=== PATIENT | male | born 1960 | race Hispanic/Latino ===

== ENCOUNTER 2019-01-11 07:20 | Day surgery (SDC) | payer OTHER ==
[2019-01-09 13:26] VITALS: BP 140/77
[2019-01-09 13:30] LABS: APPEARANCE,URINE Clear (CLEAR); BASOPHILS % (AUTO) 0.8 % (0.0-5.0); BILIRUBIN,URINE Negative (NEGATIVE); COLOR,URINE Yellow (YELLOW); EOSINOPHILS % (AUTO) 0.7 % (0.0-8.0); GLUCOSE, URINE (UA) Negative (NEGATIVE); KETONES,URINE Negative (NEGATIVE); LEUKOCYTE ESTERASE ,URINE Negative (NEGATIVE); LYMPHOCYTES % (AUTO) 33.4 % (21.0-51.0); MEAN CORPUSCULAR HEMOGLOBIN 29.5 pg (27.0-33.0); MEAN CORPUSCULAR HGB CONC 33.7 g/dL (32.0-36.0); MEAN CORPUSCULAR VOLUME 87.5 fL (79-99); MONOCYTES % (AUTO) 6.9 % (3.0-13.0); NEUTROPHILS % (AUTO) 58.2 % (40.0-77.0); NITRATE,URINE Negative (NEGATIVE); NUCLEATED RED BLOOD CELLS 0.1 % (0.0-0.19); OCCULT BLOOD,URINE Negative (NEGATIVE); PH,URINE 7.5 (5.0-8.0); PLATELET COUNT (AUTO) 254 K/uL (130-400); PROTEIN,URINE Negative (NEGATIVE); RED BLOOD CELL COUNT(AUTO) 4.46 MIL/uL (4.50-6.20); RED CELL DISTRIBUTION WIDTH 13.1 % (11.0-15.5); WHITE BLOOD COUNT (AUTO) 4.7 K/uL (4.8-10.8)
[2019-01-09 13:36] LABS: CREATININE 0.9 mg/dL (0.5-1.5); POTASSIUM 4.6 mmol/L (3.5-5.1)
[~2019-01-11] VITALS: Ht 182.9 cm; Wt 86.5 kg
[2019-01-11] VITALS (22 sets, daily range): BP systolic 97–148; BP diastolic 50–75
[~2019-01-11 07:20] MED LIST: ATOR20TA65 PO; LOSA25TA41 PO
[2019-01-11] MEDS ORDERED: LACTATED RINGERS 1000ML 1,000 ML IV ONE (08:32)
[2019-01-11] MEDS ORDERED: BUPIVACAINE/PF 0.25% 30ML VIAL IJ ONE (09:09)
[2019-01-11] MEDS ORDERED: PROPOFOL 10 MG/ML 20ML VIAL IV ONE (09:37)
[2019-01-11] MEDS ORDERED: DEXAMETHASONE SOD PHOSPHATE 10MG/ML 1ML VIAL ONE (09:37)
[2019-01-11] MEDS ORDERED: LIDOCAINE PF 2% 5ML ABBOJECT ONE (09:37)
[2019-01-11] MEDS ORDERED: FENTANYL CITRATE PF 50 MCG/1 ML 2ML VIAL ONE (09:37)
[2019-01-11] MEDS ORDERED: ONDANSETRON HCL 4 MG/2 ML VIAL ONE (09:37)
[2019-01-11] MEDS ORDERED: MIDAZOLAM HCL 1 MG/ML 2ML VIAL ONE (09:37)
[2019-01-11] MEDS ORDERED: GLYCOPYRROLATE 1 MG/5 ML SYRINGE ONE (09:54)
[2019-01-11] MEDS ORDERED: MEPERIDINE-PF 25 MG/ML SYG ONE (10:44)
--- NOTE | 2019-01-11 11:55 | NUR ---
ASSESSMENT RECEIVED PT FROM Loulou VEGA RN. PT [id number]. DRSG TO RIGHT INGUINAL AREA DRY AND INTACT. NO BLEEDING, OOZING NOTED TO SITE. AT BEDSIDE
--- NOTE | 2019-01-11 12:25 | NUR ---
DISCHARGE ORAL AND WRITTEN DISCHARGE INSTRUCTIONS GIVEN TO PT AND PTS ALONG WITH PRESCRIPTION. DRSG TO RIGHT GROIN DRY AND INTACT. SOFT TO TOUCH. INSTRUCTED ON IMPORTANCE OF VOIDING WITHIN 6 HOURS. IF NOT VOIDING REPORT TO ER OR CALL . BOTH VERBALIZED UNDERSTANDING.
== END 2019-01-11 12:30 | disposition home or self-care (01) ==
LOC: DAH 07:20
PROVIDERS: ATTEND Surgery
DX: K40.90 Unilateral inguinal hernia, without obstruction or gangrene, not specified as recurrent (principal)
CPT/HCPCS: 36415; 49505; 80048; 81003; 85025; A4450; A4452; A4606; A4930; C1729; C1781; J1100; J2001; J2175; J2250; J2405; J2704; J3010; J3490 ×2; J7120

== ENCOUNTER 2024-05-01 11:04 | Emergency (ER) | payer BC, OTHER ==
[~2024-05-01] VITALS: Ht 182.9 cm; Wt 88.5 kg
[2024-05-01 11:06] VITALS: PULSE 107; RESP 18; TEMP 98.3; O2SAT 98
[2024-05-01] MEDS ORDERED: IOHEXOL 350 MG/ML 100ML INFUS..BTL IV ONE (11:27)
[2024-05-01 11:42] LABS: BASOPHILS # (AUTO) 0.04 K/uL (0.00-0.20); BASOPHILS % (AUTO) 0.8 % (0.0-5.0); EOSINOPHILS # (AUTO) 0.03 K/uL (0.00-0.70); EOSINOPHILS % (AUTO) 0.6 % (0.0-8.0); HEMATOCRIT 41.7 % (42-54); IMMATURE GRANULOCYTE ABSOLUTE 0.01 K/uL (0-1); LYMPHOCYTES # (AUTO) 1.4 K/uL (1.0-4.8); LYMPHOCYTES % (AUTO) 27.1 % (21.0-51.0); MEAN CORPUSCULAR HEMOGLOBIN 29.6 pg (27.0-33.0); MEAN CORPUSCULAR HGB CONC 34.1 g/dL (32.0-36.0); MEAN CORPUSCULAR VOLUME 87.1 fL (79-99); MONOCYTES # (AUTO) 0.5 K/uL (0.1-1.0); NEUTROPHILS # (AUTO) 3.1 K/uL (1.8-7.7); NEUTROPHILS % (AUTO) 61.3 % (40.0-77.0); PLATELET COUNT (AUTO) 217 K/uL (130-400); RED BLOOD CELL COUNT(AUTO) 4.79 MIL/uL (4.50-6.20); RED CELL DISTRIBUTION WIDTH 12.2 % (11.0-15.5)
[2024-05-01 11:51] LABS: POTASSIUM 4.3 mmol/L (3.5-5.1)
[2024-05-01 12:00] LABS: INR 1.05 (0.85-1.15); PROTHROMBIN TIME 11.3 SEC (9.6-11.6)
[2024-05-01 12:01] LABS: PARTIAL THROMBOPLASTIN TIME 25.2 SEC (26.3-35.5)
[2024-05-01 12:14] LABS: B-TYPE NATRIURETIC PEPTIDE 86 pg/mL (0-100)
[2024-05-01 12:26] VITALS: BP 160/96
[2024-05-01] MEDS: LAbetaLOL 20MG SYG IV ONE (12:26)
[2024-05-01] MEDS: TENECTEplase 50 MG VIAL IV ONE (12:48)
== END 2024-05-01 13:54 | disposition critical access hospital (66) ==
LOC: EDH 11:04
DX: H53.462 Homonymous bilateral field defects, left side (principal); I48.91 Unspecified atrial fibrillation; I10 Essential (primary) hypertension; Z79.899 Other long term (current) drug therapy; Z98.890 Other specified postprocedural states
CPT/HCPCS: 36415; 37195; 70450; 70496; 70498; 71045; 80048; 82550; 83880; 84484; 85025; 85610; 85730; 93005; 96374; 99291; Q9967; J3101